=== PATIENT | male | born 1955 | race Caucasian/White ===

== ENCOUNTER → 2018-02-12 | Outpatient (CLI) | payer MEDICARE | END | disposition home or self-care (01) | LOC: PCVCCLINIC 13:00 | PROVIDERS: ATTEND Internal Medicine | DX: I49.1 Atrial premature depolarization (principal); R26.81 Unsteadiness on feet; F10.21 Alcohol dependence, in remission; E78.5 Hyperlipidemia, unspecified; R55 Syncope and collapse; R00.0 Tachycardia, unspecified; E03.9 Hypothyroidism, unspecified; I48.91 Unspecified atrial fibrillation; M19.90 Unspecified osteoarthritis, unspecified site; Z79.82 Long term (current) use of aspirin | CPT/HCPCS: 80061; 93005; G0463 ==

== ENCOUNTER → 2018-03-17 | Outpatient (CLI) | payer MEDICARE ==
--- NOTE | 2018-03-17 13:52 | PCVCIMAG ---
APPROVED REPORT Study performed: 03/17/2018 12:33:38 EXAM: Comprehensive 2D, Doppler, and color-flow Echocardiogram Patient Location: Echo lab Room #: 2Status: routine BSA: 2.06 HR: 72 bpmBP: 116/74 mmHg Rhythm: NSR Other Information Study Quality: Good Risk Factors: Cardiac Risk Factors: Hyperlipidemia Indications Palpitations Near syncope, ectopic atrial rhythm 2D Dimensions IVSd: 10.03 (7-11mm)LVOT Diam: 22.02 (18-24mm) LVDd: 45.26 mm PWd: 9.14 (7-11mm)Ascending Ao: 34.92 (22-36mm) LVDs: 28.27 (25-40mm) Left Atrium: 38.58 (27-40mm) Aortic Root: 30.45 mm LV Single Plane 4CH: 70.36 % LV Single Plane 2CH: 74.65 % Biplane EF: 73.9 % Volumes Left Atrial Volume (Systole) Single Plane 4CH: 74.93 mLSingle Plane 2CH: 62.16 mL Biplane LA Volume: 69.00 mLLA ESV Index: 33.00 mL/m2 Aortic Valve AoV Peak Michael.: 1.48 m/s AO Peak Gr.: 8.78 mmHgLVOT Max P.45 mmHg LVOT Max V: 1.36 m/s ANGY Vmax: 3.51 cm2 Mitral Valve E/A Ratio: 1.5 MV Decel. Time: 202.21 ms MV E Max Michael.: 0.95 m/s MV A Michael.: 0.62 m/s IVRT: 51.90 ms TDI E/Lateral E': 6.33E/Medial E': 13.57 Medial E' Michael.: 0.07 m/s Lateral E' Michael.: 0.15 m/s Pulmonary Valve PV Peak Michael.: 0.93 m/sPV Peak Gr.: 3.48 mmHg Pulmonary Vein P Vein S: 0.65 m/sP Vein A: 0.17 m/s P Vein D: 0.69 m/sP Vein A Dur.: 110.7 msec P Vein S/D Ratio: 0.94 Tricuspid Valve TR Peak Michael.: 2.61 m/s TR Peak Gr.: 27.21 mmHg TV Vmax: 0.60 m/sPA Pressure: 34.00 mmHg Left Ventricle The left ventricle is normal size. There is normal LV segmental wall motion. There is normal left ventricular wall thickness. The left ventricular systolic function is normal. The left ventricular ejection fraction is within the normal range. LVEF is 65-70%. The left ventricular diastolic function is normal. Right Ventricle The right ventricle is normal size. The right ventricular systolic function is normal. Atria Left atrium is at the upper limits of normal. Right atrium is moderately dilated. Aortic Valve Aortic valve is trileaflet. aortic valve is mildly sclerotic. No aortic regurgitation is present. There is no aortic valvular stenosis. Mitral Valve Mild mitral annular calcification. There is no mitral valve regurgitation noted. No evidence of mitral valve stenosis. Tricuspid Valve The tricuspid valve is normal in structure. Mild to moderate tricuspid regurgitation with a PA pressure of 34 mmHg. Pulmonic Valve The pulmonary valve is normal in structure. There is no pulmonic valvular regurgitation. Great Vessels The aortic root is normal in size. The ascending aorta is normal in size. Aortic arch is normal in caliber. IVC is normal in size and collapses <50% with inspiration. Pericardium There is no pericardial effusion. There is no pleural effusion. <Conclusion> The left ventricular systolic function is normal. There is normal LV segmental wall motion. LVEF is 65-70%. Normal diastolic function Aortic valve is trileaflet. aortic valve is mildly sclerotic. No aortic regurgitation or stenosis Mild mitral annular calcification. No mitral valve regurgitation. Mild to moderate tricuspid regurgitation with a pulmonary artery pressure of 34 mmHg. There is no pericardial effusion.
== END | disposition home or self-care (01) ==
LOC: PCVCIMAG 14:16
PROVIDERS: ATTEND Internal Medicine
DX: I08.3 Combined rheumatic disorders of mitral, aortic and tricuspid valves (principal); R55 Syncope and collapse; R00.2 Palpitations; I49.8 Other specified cardiac arrhythmias; R26.81 Unsteadiness on feet; E78.5 Hyperlipidemia, unspecified; F10.21 Alcohol dependence, in remission; I48.91 Unspecified atrial fibrillation; E03.9 Hypothyroidism, unspecified; Z79.82 Long term (current) use of aspirin; Z90.49 Acquired absence of other specified parts of digestive tract
CPT/HCPCS: 93005; 93306; G0463

== ENCOUNTER → 2018-09-15 | Outpatient (CLI) | payer MEDICARE | END | disposition home or self-care (01) | LOC: PCVCCLINIC 14:00 | PROVIDERS: ATTEND Internal Medicine | DX: R00.0 Tachycardia, unspecified (principal); I48.0 Paroxysmal atrial fibrillation; E78.5 Hyperlipidemia, unspecified; R26.81 Unsteadiness on feet; F10.21 Alcohol dependence, in remission; E03.9 Hypothyroidism, unspecified; Z79.899 Other long term (current) drug therapy; Z79.82 Long term (current) use of aspirin | CPT/HCPCS: 36415; 80061; 93005; G0463 ==